=== PATIENT | female | born 1975 ===

== ENCOUNTER 2016-12-06 08:55 | Emergency (ER) | payer OTHER, SELFPAY ==
[2016-12-06] MEDS ORDERED: Sodium Chloride 0.9% 1,000 ML IV ONE (10:29)
[2016-12-06] MEDS ORDERED: Aspirin 325 mg EC Tablets PO STA (10:29)
[2016-12-06] MEDS ORDERED: Aspirin 325 mg EC Tablets PO ONE (10:39)
[2016-12-06] MEDS ORDERED: Sodium Chloride 0.9% 1,000 ML ONE (10:39)
[2016-12-06 10:55] LABS: BASO % 0.7 % (0.0-2.0); EOS # 0.1 K/uL (0.0-0.7); EOS % 1.4 % (0.0-4.0); HEMATOCRIT 40.2 % (34.0-47.0); LYMPH # 1.8 K/uL (1.0-4.3); LYMPH % 31.3 % (20.0-40.0); MEAN CELL VOLUME 91.3 fL (81.0-99.0); MEAN CORPUSCULAR HEMOGLOBIN 31.2 pg (27.0-31.0); MEAN CORPUSCULAR HGB CONC 34.2 g/dL (33.0-37.0); MEAN PLATELET VOLUME 7.9 fL (7.2-11.7); MONO # 0.4 K/uL (0.0-0.8); MONO % 7.4 % (0.0-10.0); RED CELL DISTRIBUTION WIDTH 13.2 % (11.5-14.5); WHITE BLOOD COUNT 5.8 K/uL (4.8-10.8)
[2016-12-06 10:59] LABS: CHLORIDE 102 mmol/L (98-107)
--- NOTE | 2016-12-06 10:59 | C.PDOC ---
History Of Present Illness 41 y/o female presents to ED for evaluation of reproducible left sided chest pain intermittently for 2 weeks. Patient describes pain as "tightness" and radiating to left shoulder. Patient states chest pain is similar as in the past and has been seen at ED for same symptoms. Patient denies headache, dizziness, syncope, diaphoresis or any other complaints at this time. Time Seen by Provider: 12/06/16 09:31 Chief Complaint (Nursing): Chest Pain History Per: Patient History/Exam Limitations: no limitations Onset/Duration Of Symptoms: Days, Intermittent Episodes Current Symptoms Are (Timing): Still Present Quality: Tightness Associated Symptoms: denies: Diaphoresis, Syncope Past Medical History Reviewed: Historical Data, Nursing Documentation, Vital Signs Vital Signs: Last Vital Signs Temp 97.9 F 12/06/16 14:58 Pulse 79 12/06/16 14:58 Resp 18 12/06/16 14:58 BP 116/75 12/06/16 14:58 Pulse Ox 100 12/06/16 14:58 - Medical History PMH: No Chronic Diseases Surgical History: No Surg Hx Family History: States: No Known Family Hx - Social History Hx Tobacco Use: No Hx Alcohol Use: No Hx Substance Use: No Review Of Systems Except As Marked, All Systems Reviewed And Found Negative. Constitutional: Negative for: Fever, Chills Eyes: Negative for: Vision Change Cardiovascular: Positive for: Chest Pain. Negative for: Palpitations, Edema, Light Headedness Respiratory: Negative for: Cough, Shortness of Breath, Wheezing Gastrointestinal: Negative for: Nausea, Vomiting, Abdominal Pain, Diarrhea Musculoskeletal: Positive for: Shoulder Pain Neurological: Negative for: Headache, Dizziness Physical Exam - Physical Exam Appears: Non-toxic, No Acute Distress Skin: Warm, Dry, No Rash Head: Normacephalic Eye(s): bilateral: PERRL Nose: No Flaring Oral Mucosa: Moist, No Drooling Tongue: Normal Appearing Lips: Normal Appearing Throat: No Erythema, No Drooling Neck: Trachea Midline, Supple Chest: Symmetrical, Tenderness (Reproducible left anterior chest wall tenderness , over 3-5 intercostal space) Cardiovascular: Rhythm Regular, No Murmur, No JVD, Other ((-) carotid bruits B/L ) Respiratory: No Rales, No Rhonchi, No Stridor, No Wheezing Gastrointestinal/Abdominal: Soft, No Tenderness, No Guarding Back: No CVA Tenderness Extremity: Normal ROM, No Pedal Edema, No Calf Tenderness Neurological/Psych: Oriented x3, Normal Speech ED Course And Treatment - Laboratory Results Result Diagrams: 12/06/16 10:46 12/06/16 10:46 Lab Interpretation: Abnormal (D-Dimer) ECG: Interpreted By Me, Viewed By Me (and ED attending) ECG Interpretation: No Changes From Prior (05/13/16) Interpretation Of ECG: SR@90/min, NAD, no acute ST-T changes. O2 Sat by Pulse Oximetry: 93 (RA) Pulse Ox Interpretation: Abnormal - Radiology CXR: Interpreted by Me, Viewed By Me CXR Interpretation: Yes: No Acute Disease - CT Scan/US CTA w/IV contrast Other Rad Studies (CT/US): Radiology Report Reviewed CT/US Interpretation: Accession No. : [id number]. Patient Name / ID : ANGIE RIDLEY / [id number]. Exam Date : 12/06/2016 13:17:21 ( Approved ). Study Comment : Sex / Age : F / 41Y. Creator : Fernando Warren MD. Dictator : Fernando Warren MD. Plumber Helper : Scheduling Administrator : Fernando Warren MD. Approver2 : Report Date : 12/06/2016 13:56:30. My Comment : . PROCEDURE: CT Chest with contrast (Pulmonary Angiogram). HISTORY: chest pain , hypoxia. COMPARISON: None available. TECHNIQUE: Axial computed tomography images were obtained of the chest in the pulmonary arterial phase of enhancement. Coronal and sagittal reformatted images were created and reviewed. Intravenous contrast dose: 100 mL Visipaque 320. Radiation dose: Total exam DLP = 192.36 mGy-cm. This CT exam was performed using one or more of the following dose reduction techniques: Automated exposure control, adjustment of the mA and/or kV according to patient size, and/or use of iterative reconstruction technique. FINDINGS: PULMONARY ARTERIES: Unremarkable. No pulmonary embolism. AORTA: No acute findings. No thoracic aortic aneurysm. LUNGS: Calcified left upper lobe pulmonary nodule consistent with old granulomatous disease. 3 mm nodule in right upper lobe abutting the minor fissure, possibly intrapulmonary lymph node. No follow-up advised. No other pulmonary mass identified. Left lower lobe infiltrate. No infiltrate elsewhere. PLEURAL SPACES: Unremarkable. No effusion or pneuomothorax. HEART: Unremarkable. No cardiomegaly. No significant pericardial effusion. LYMPH NODES : No lymphadenopathy. Left hilar calcifications consistent with old granulomatous disease. BONES, CHEST WALL: Unremarkable. No fracture or destructive lesion. OTHER FINDINGS: Heterogeneous thyroid gland. Recommend correlation with thyroid ultrasound examination. IMPRESSION: No evidence of pulmonary embolism. Left lower lobe infiltrate. Possible pneumonia. Calcified left upper lobe granuloma and left hilar calcifications, consistent with old granulomatous disease. Heterogeneous thyroid. Recommend correlation with thyroid ultrasound examination. Progress Note: On re-evaluation, pt remained stable. Afebrile, hemodynamicaly stable. Non-toxic. ENT: No acute findings. Lungs: CTA B/L, BS equal B/L. CVS : (+)S1S2, reg. Abd:benign. Blood work review and D-Dimer was high. CTA r/o PE order. After CT results review (+) LLL infiltrate noted. After blood cx obtained, Abx as given. Repeat PUlseOx 100% RA. No leukocytosis, no left shift. Results review with pt. Pt understand, stable for discharge now and outpt f/u. Disposition - Disposition Disposition: HOME/ ROUTINE Disposition Time: 14:26 Condition: STABLE Additional Instructions: Encourage fluids Take medication as prescribed Follow up with PMD in 2-3 days for re-evaluation. Return to ED if any worsening or new changes. 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 - Scribe Statement The provider has reviewed the documentation as recorded by the Vicenteibbobbi Luz All medical record entries made by the Scribe were at my direction and personally dictated by me. I have reviewed the chart and agree that the record accurately reflects my personal performance of the history, physical exam, medical decision making, and the department course for this patient. I have also personally directed, reviewed, and agree with the discharge instructions and disposition.
[2016-12-06 11:00] LABS: SODIUM 137 mmol/L (132-148)
[2016-12-06 11:01] LABS: POTASSIUM 4.3 mmol/L (3.6-5.2); RBC URINE < 1 /hpf (0-3); URINE BILIRUBIN NEGATIVE (NEGATIVE); URINE BLOOD NEGATIVE (NEGATIVE); URINE COLOR Straw (YELLOW); URINE GLUCOSE (UA) NORMAL (Normal); URINE KETONE NEGATIVE (NEGATIVE); URINE LEUKOCYTE ESTERASE NEG Leu/uL (Negative); URINE PROTEIN NEGATIVE (NEGATIVE); URINE UROBILINOGEN NORMAL mg/dL (0.2-1.0)
[2016-12-06 11:03] LABS: ALB/GLOB RATIO 1.2 (1.0-2.1); ALKALINE PHOSPHATASE 74 U/L (38-126); AST/SGOT 20 U/L (14-36); BILIRUBIN,TOTAL 0.4 mg/dL (0.2-1.3); BLOOD UREA NITROGEN 16 mg/dL (7-17); CARBON DIOXIDE 23 mmol/L (22-30); GFR AFRICAN-AMERICAN > 60; TOTAL PROTEIN 8.6 g/dL (6.3-8.3)
[2016-12-06 11:04] LABS: ALT/SGPT 34 U/L (9-52); CALCIUM 9.2 mg/dl (8.6-10.4); GLUCOSE,RANDOM 84 mg/dL (65-105)
--- NOTE | 2016-12-06 11:28 | RAD ---
HISTORY: chest pain COMPARISON: 05/13/2015 TECHNIQUE: Chest PA and lateral FINDINGS: LUNGS: Rounded nodule seen projecting over the lateral aspect of the right lower lung zone which may represent nipple shadow versus small nodule. Correlation with nipple marker would be helpful for further evaluation. Persistent small rounded nodular density seen at the lateral aspect of the left upper to mid lung zone which may represent nodule and or granuloma. Continued interval followup and or correlation with chest CT may be helpful. Mild venous congestion. Left apical pleural thickening. PLEURA: As above. CARDIOVASCULAR: Normal. OSSEOUS STRUCTURES: No significant abnormalities. VISUALIZED UPPER ABDOMEN: Normal. OTHER FINDINGS: None. IMPRESSION: Rounded nodule seen projecting over the lateral aspect of the right lower lung zone which may represent nipple shadow versus small nodule. Correlation with nipple marker would be helpful for further evaluation. Persistent small rounded nodular density seen at the lateral aspect of the left upper to mid lung zone which may represent nodule and or granuloma. Continued interval followup and or correlation with chest CT may be helpful. Mild venous congestion. Left apical pleural thickening.
[2016-12-06] MEDS ORDERED: Iodixanol 320 MG/ML 100 ML BOTTLE IV ONE (12:22)
--- NOTE | 2016-12-06 13:58 | CT ---
PROCEDURE: CT Chest with contrast (Pulmonary Angiogram) HISTORY: chest pain, hypoxia COMPARISON: None available. TECHNIQUE: Axial computed tomography images were obtained of the chest in the pulmonary arterial phase of enhancement. Coronal and sagittal reformatted images were created and reviewed. Intravenous contrast dose: 100 mL Visipaque 320 Radiation dose: Total exam DLP = 192.36 mGy-cm. This CT exam was performed using one or more of the following dose reduction techniques: Automated exposure control, adjustment of the mA and/or kV according to patient size, and/or use of iterative reconstruction technique. FINDINGS: PULMONARY ARTERIES: Unremarkable. No pulmonary embolism. AORTA: No acute findings. No thoracic aortic aneurysm. LUNGS: Calcified left upper lobe pulmonary nodule consistent with old granulomatous disease. 3 mm nodule in right upper lobe abutting the minor fissure, possibly intrapulmonary lymph node. No follow-up advised. No other pulmonary mass identified. Left lower lobe infiltrate. No infiltrate elsewhere. PLEURAL SPACES: Unremarkable. No effusion or pneuomothorax. HEART: Unremarkable. No cardiomegaly. No significant pericardial effusion. LYMPH NODES: No lymphadenopathy. Left hilar calcifications consistent with old granulomatous disease. BONES, CHEST WALL: Unremarkable. No fracture or destructive lesion OTHER FINDINGS: Heterogeneous thyroid gland. Recommend correlation with thyroid ultrasound examination. IMPRESSION: No evidence of pulmonary embolism. Left lower lobe infiltrate. Possible pneumonia. Calcified left upper lobe granuloma and left hilar calcifications, consistent with old granulomatous disease. Heterogeneous thyroid. Recommend correlation with thyroid ultrasound examination.
[2016-12-06] MEDS ORDERED: Albuterol 0.083% Inhal Sol (2.5 mg/3 mL) UD IH STA (14:21)
[2016-12-06] MEDS ORDERED: Albuterol 0.083% Inhal Sol (2.5 mg/3 mL) UD ONE (14:44)
[2016-12-06] MEDS ORDERED: cefTRIAXone 1 gm in Water For Injection 2.1 ML IM ONE (15:32)
[2016-12-06 16:17] VITALS: BP 103/71; PULSE 83; RESP 16; TEMP 98.1; O2SAT 100
== END 2016-12-06 16:15 | disposition home or self-care (01) ==
LOC: C.ER 08:55
DX: J18.9 Pneumonia, unspecified organism (principal)
CPT/HCPCS: 71020; 71275; 80053; 81001; 84484; 84703; 85025; 85378; 85610; 85730; 87040; 96360; 96372; 99285; J0696; J7040; Q9967